=== PATIENT | female | born 1945 | race Caucasian/White ===

== ENCOUNTER 2019-04-12 09:03 | Outpatient (REF) | payer MEDICARE, OTHER, SELFPAY ==
[2019-04-12 19:13] LABS: Anion Gap 10.8 mmol/L (3-11); BUN 37 mg/dL (7-18); CO2 29.2 mmol/L (21.0-32.0); CREATININE 1.07 mg/dL (0.55-1.02); Calcium 9.2 mg/dL (8.5-10.1); Chloride 99 mmol/L (98-107); Estimated GFR 50.55 (mL/min/1.73m2); Glucose 101 mg/dL (74-106); Potassium 3.1 mmol/L (3.5-5.1); Sodium 139 mmol/L (136-145)
== END 2019-04-12 09:23 ==
LOC: NCHCN 09:03
PROVIDERS: PCP Physician Assistant; Visit Provider Physician Assistant
DX: E87.6 Hypokalemia (principal); R60.0 Localized edema
CPT/HCPCS: 80048

== ENCOUNTER 2019-04-30 09:19 | Outpatient (REF) | payer MEDICARE, OTHER, SELFPAY ==
[2019-04-30 19:42] LABS: Anion Gap 8.1 mmol/L (3-11); BUN 26 mg/dL (7-18); CO2 30.9 mmol/L (21.0-32.0); CREATININE 1.05 mg/dL (0.55-1.02); Calcium 8.9 mg/dL (8.5-10.1); Chloride 103 mmol/L (98-107); Estimated GFR 51.52 (mL/min/1.73m2); Glucose 92 mg/dL (74-106); Potassium 3.5 mmol/L (3.5-5.1); Sodium 142 mmol/L (136-145)
== END 2019-04-30 09:39 ==
LOC: NCHCN 09:19
PROVIDERS: PCP Physician Assistant; Visit Provider Physician Assistant
DX: E87.6 Hypokalemia (principal); R60.0 Localized edema
CPT/HCPCS: 80048

== ENCOUNTER 2019-08-30 17:33 | Outpatient (REF) | payer MEDICARE, OTHER, SELFPAY ==
[2019-08-30 19:11] LABS: FREE T4 1.23 ng/dL (0.76-1.46); TSH 1.17 uIU/mL (0.36-3.74)
== END 2019-08-30 17:53 ==
LOC: NCHCN 17:33
PROVIDERS: PCP Physician Assistant; Visit Provider Physician Assistant
DX: E03.9 Hypothyroidism, unspecified (principal)
CPT/HCPCS: 84439; 84443

== ENCOUNTER 2020-02-19 11:40 | Outpatient (REF) | payer MEDICARE, SELFPAY ==
[2020-02-19 20:50] LABS: HCT 37.8 % (36.0-46.0); HGB 12.3 g/dL (11.2-15.7); MCH 29.9 pg (27.0-33.0); MCHC 32.5 % (32.0-36.0); MCV 91.7 fL (80-95); MPV 9.5 fL (8.0-11.0); Platelet Count 414 10^3/uL (130-400); RBC 4.12 10^6/uL (3.93-5.22); RDW 12.6 % (11.7-14.6); RDW-SD 42.1 fL; WBC 7.07 10^3/uL (4.4-10.8)
[2020-02-19 21:11] LABS: Magnesium 2.1 mg/dL (1.8-2.4); TSH 1.15 uIU/mL (0.36-3.74)
[2020-02-19 21:44] LABS: FREE T4 1.05 ng/dL (0.76-1.46)
[2020-02-20 17:24] LABS: T3, Total 124 ng/dL (97-169)
== END 2020-02-19 12:00 ==
LOC: NCHCN 11:40
PROVIDERS: PCP Physician Assistant; Visit Provider Physician Assistant
DX: D72.829 Elevated white blood cell count, unspecified (principal); E03.9 Hypothyroidism, unspecified; R60.0 Localized edema
CPT/HCPCS: 85027; 83735; 84439; 84443; 84480

== ENCOUNTER 2020-05-15 18:44 | Outpatient (REF) | payer MEDICARE, SELFPAY ==
[2020-05-15 18:18] LABS: Anion Gap 11.6 mmol/L (3-11); BUN 36 mg/dL (7-18); CO2 30.4 mmol/L (21.0-32.0); CREATININE 1.1 mg/dL (0.55-1.02); Calcium 9.8 mg/dL (8.5-10.1); Chloride 99 mmol/L (98-107); Estimated GFR 48.69 (mL/min/1.73m2); Glucose 106 mg/dL (74-106); Potassium 3.1 mmol/L (3.5-5.1); Sodium 141 mmol/L (136-145)
[2020-05-15 18:24] LABS: Hemoglobin A1C 5.9 % (<5.7)
== END 2020-05-15 18:45 | disposition home or self-care (01) ==
LOC: NCHCN 18:44
PROVIDERS: PCP Physician Assistant; Visit Provider Physician Assistant
DX: E11.9 Type 2 diabetes mellitus without complications (principal)
CPT/HCPCS: 80048; 83036

== ENCOUNTER 2020-06-16 15:10 | Outpatient (REF) | payer MEDICARE, SELFPAY ==
[2020-06-16 15:32] LABS: Anion Gap 10.6 mmol/L (3-11); CO2 32.4 mmol/L (21.0-32.0); Chloride 95 mmol/L (98-107); Potassium 3.2 mmol/L (3.5-5.1); Sodium 138 mmol/L (136-145)
== END 2020-06-16 15:11 | disposition home or self-care (01) ==
LOC: NCHCN 15:10
PROVIDERS: PCP Physician Assistant; Visit Provider Family Medicine
DX: E87.6 Hypokalemia (principal)
CPT/HCPCS: 80051

== ENCOUNTER 2020-06-23 09:43 | Day surgery (SDC) | payer MEDICARE, OTHER, SELFPAY ==
[2020-06-23 09:48] VITALS: BP 111/60; PULSE 58; RESP 17; TEMP 36.8; O2SAT 98
[2020-06-23] MEDS: Tropicam./Phenyleph. (1/2.5%) 5 ML BTL OD ×3 (10:06→10:23)
[2020-06-23] MEDS: Tetracaine 0.5% 4 ML BTL OD (11:05)
[2020-06-23] MEDS: Lidocaine 2% Jelly 6 ML SYR (11:06)
[2020-06-23] MEDS: Povidone-Iodine Ophth 30 ML BTL (11:06)
[2020-06-23] MEDS: Lidocaine 1% Pres-Free 5 ML VIAL (11:07)
[2020-06-23] MEDS: Duovisc Viscoelastic System EACH 1 EACH (11:08)
[2020-06-23] MEDS: Balanced Salt Soln.-PLUS 500 ML BAG (11:08)
--- NOTE | 2020-06-23 11:33 | W.PM.DSUDISC ---
Discharge Plan Disposition Patient Disposition: HOME Condition: Good Discharge Details Attending Provider: Todd Kelly Primary Care Provider: Arlene Fajardo Home Meds and New Rx's Prescriptions: No Action atorvastatin 40 mg Tablet 40 mg PO DAILY RF: 0 magnesium 500 mg Tablet 500 mg PO DAILY RF: 0 levothyroxine [Synthroid] 88 mcg tablet 88 mcg PO DAILY RF: 0 cephalexin 500 mg Capsule 2,000 mg PO DAILY PRN (Reason: dental) RF: 0 Flovent HFA 44 mcg/actuation Hfa Aerosol Inhaler 1 - 2 puff INHALATION BID RF: 0 furosemide 20 mg Tablet 20 mg PO DAILY PRNRF: 0 triamterene-hydrochlorothiazid 75-50 mg tablet 2 tab PO DAILY RF: 0 albuterol sulfate 90 mcg/actuation HFA aerosol inhaler 1 - 2 puff INHALATION DIRECTED PRNRF: 0 atenolol 50 mg tablet 50 mg PO DAILY RF: 0 Xarelto 20 mg Tablet 20 mg PO DAILY RF: 0 potassium chloride 20 mEq tablet extended release 20 meq PO DAILY RF: 0 liothyronine [Cytomel] 5 mcg tablet 5 mcg PO DAILY RF: 0 Discharge Instructions Stand Alone Forms: Post-op Topical Cataract, Maryan Gates (DSU) Discharge Orders Discharge Orders: Discharge Order (Routine); Ordered 06/23/20 Ordered By: Todd Kelly DS: Diagnosis Discharge Diagnosis (1) Cortical cataract of right eye: Status: Resolved (2) Nuclear sclerotic cataract of right eye: Status: Resolved
--- NOTE | 2020-06-23 11:34 | W.PM.OP ---
Date of service: 06/23/20 Time of Service: 11:35 Operative Note Operative Note DATE OF PROCEDURE: 06/23/20 PRE-OP DIAGNOSIS: Nuclear/cortical cataract, right eye POST-OP DIAGNOSIS: same PROCEDURE: Cataract extraction using phacoemulsification with intraocular lens implant, right eye SURGEON: Todd Kelly ANESTHESIA TYPE: Local By Surgeon and MAC Refer to Anesthesia Record ESTIMATED BLOOD LOSS: 0 PATHOLOGY: none sent COMPLICATIONS: None Patient was transported to: same day Patient's condition: stable Implants: Guido and Guido Vision / [employer] Tecnis ZCB00 intraocular lens Indications: Progressive decreased vision due to cataract, right eye Procedure Description: CATARACT SURGERY OPERATIVE REPORT PREOPERATIVE DIAGNOSIS: Nuclear/cortical cataract, right eye POSTOPERATIVE DIAGNOSIS: Same OPERATION: Cataract extraction using phacoemulsification with posterior chamber intraocular lens implant, right eye. IOL: IOL Director Executive [employer]/Model: [employer] Vision / TAYE Tecnis ZCB00 IOL Power: + 20.5 diopters IOL Serial Number: [id number] Optic Diameter: 6.0mm Haptic/Overall Diameter: 13.0mm PHACO INFO: Travis Secpanelurion Vision System with OZil and Active Fluidics Cumulative Dispersed Energy (CDE): 11.90 seconds SURGEON: Todd Kelly MD, YOLANDA ANESTHESIA: Monitored Anesthesia Care (MAC), with local sub-tenon's anesthetic infiltration COMPLICATIONS: None SPECIMENS: None INDICATIONS FOR PROCEDURE: The patient is a 75-year-old lady with history of diminished visual acuity in her right eye secondary to the development of nuclear and cortical cataract. The option of cataract surgery was offered to the patient and she wished to proceed. PROCEDURE: The correct surgical eye was identified and marked as the right eye and the pupil was dilated in the preoperative area using mydriatics and cycloplegics. The dilated pupil size was 7.0 mm. The patient elected to proceed without oral sedation.. The patient was brought to the operating room where cardiopulmonary monitoring was instituted and surgical time-out was performed, confirming the correct operative eye and IOL power. Topical anesthesia was administered and ophthalmic povidone-iodine 5% was instilled into the conjunctival fornices. Lidocaine gel was applied to the cornea and the angela-ocular area was prepped with Betadine 10% solution and draped in the usual sterile fashion for intraocular surgery, including an aperture drape. A Tegaderm transparent film dressing was cut in half and used to cover the lashes and lid margins. Care was taken to sequester the lashes and lid margins under the Tegaderm dressing. A lid speculum was placed between the lids of the operative eye and the Jude-Pablo operating microscope was maneuvered into position. [place] scissors were then used to make a conjunctival buttonhole approximately 6mm posterior to the limbus in the inferonasal quadrant. Blunt dissection was carried out to expose bare sclera, and a blunt-tipped sub-tenon?s anesthesia cannula was introduced and passed posteriorly along the globe where non-preserved plain lidocaine was injected into posterior sub-Tenon?s space. A sideport knife was used to make a paracentesis port inferiortemporally. Intraocular phenylephrine/lidocaine was injected into the anterior chamber. The anterior chamber was then filled with viscoelastic. A 2.4mm keratome knife was used to create a half-thickness groove at the limbus and then to construct a three-plane near-clear corneal tunnel extending 2.0mm into clear cornea in the superiortemporal position. . A flap was raised on the anterior capsule and capsulorhexis forceps were used to complete a continuous curvilinear capsulorhexis of 5.5 mm. Balanced salt solution was then used to perform cortical cleaving hydrodissection and nuclear hydrodelineation until the lens could be freely rotated within the capsular bag. The lens nucleus was then disassembled and removed within the capsular bag and iris plane using phacoemulsification. Residual cortical material was removed using the I/A handpiece. The posterior capsule was carefully polished to remove as much residual lens epithelial cells as safely possible. The capsular bag was then inflated and the anterior chamber deepened with viscoelastic. The lens implant described above was inserted into the capsular bag using the TAYE [place] Injector. A Kuglen hook was used to dial the IOL into position. Residual viscoelastic was then removed first from posterior to the IOL, then from the anterior chamber using the I/A handpiece. The lens implant was noted to center nicely within the capsular bag. The incisions were stromally hydrated, and the anterior chamber was reformed using BSS. Then 0.5cc of moxifloxacin 1.0mg/ml were injected into the capsular bag and anterior chamber. The incisions were checked with a Weck spear and found to be secure. Several drops of ophthalmic povidone-iodine 5% were then applied to the eye followed by two drops of Imprimis combination prednisolone/moxifloxacin/nepafenac solution. The drapes were removed and a clear plastic protective eye shield was placed over the eye. The patient was then returned to [facility] in stable condition.
== END 2020-06-23 12:00 | disposition home or self-care (01) ==
PROVIDERS: PCP Physician Assistant; Visit Provider Ophthalmology
PROC: (CPT 66984; principal; 2020-06-23 12:30)
DX: H25.11 Age-related nuclear cataract, right eye (principal); H25.011 Cortical age-related cataract, right eye
CPT/HCPCS: 66984; V2632

== ENCOUNTER 2020-07-07 07:19 | Day surgery (SDC) | payer MEDICARE, OTHER, SELFPAY ==
[2020-07-07 07:30] VITALS: BP 138/70; PULSE 51; RESP 18; TEMP 36.1; O2SAT 99
[2020-07-07] MEDS: Tropicam./Phenyleph. (1/2.5%) 5 ML BTL OS ×3 (07:50→07:59)
[2020-07-07] MEDS: Tetracaine 0.5% 4 ML BTL OS (08:35)
[2020-07-07] MEDS: Povidone-Iodine Ophth 30 ML BTL ×2 (08:38→09:02)
[2020-07-07] MEDS: Lidocaine 2% Jelly 6 ML SYR (08:38)
[2020-07-07] MEDS: Balanced Salt Soln.-PLUS 500 ML BAG (08:43)
[2020-07-07] MEDS: Lidocaine 1% Pres-Free 5 ML VIAL (08:44)
[2020-07-07] MEDS: Duovisc Viscoelastic System EACH 1 EACH (08:45)
--- NOTE | 2020-07-07 09:10 | W.PM.DSUDISC ---
Discharge Plan Disposition Patient Disposition: HOME Condition: Good Discharge Details Attending Provider: Todd Kelly Primary Care Provider: Arlene Fajardo Home Meds and New Rx's Prescriptions: No Action atorvastatin 40 mg Tablet 40 mg PO DAILY RF: 0 magnesium 500 mg Tablet 500 mg PO DAILY RF: 0 levothyroxine [Synthroid] 88 mcg tablet 88 mcg PO DAILY RF: 0 cephalexin 500 mg Capsule 2,000 mg PO DAILY PRN (Reason: dental) RF: 0 Flovent HFA 44 mcg/actuation Hfa Aerosol Inhaler 1 - 2 puff INHALATION BID RF: 0 furosemide 20 mg Tablet 20 mg PO DAILY PRNRF: 0 triamterene-hydrochlorothiazid 75-50 mg tablet 2 tab PO DAILY RF: 0 albuterol sulfate 90 mcg/actuation HFA aerosol inhaler 1 - 2 puff INHALATION DIRECTED PRNRF: 0 atenolol 50 mg tablet 50 mg PO DAILY RF: 0 Xarelto 20 mg Tablet 20 mg PO DAILY RF: 0 potassium chloride 20 mEq tablet extended release 20 meq PO DAILY RF: 0 liothyronine [Cytomel] 5 mcg tablet 5 mcg PO DAILY RF: 0 Discharge Instructions Stand Alone Forms: Post-op Topical Cataract, Maryan Gates ([facility]U) Discharge Orders Discharge Orders: Discharge Order (Routine); Ordered 07/07/20 Ordered By: Todd Kelly DS: Diagnosis Discharge Diagnosis (1) Cortical cataract of left eye: Status: Resolved (2) Nuclear sclerotic cataract of left eye: Status: Resolved
--- NOTE | 2020-07-07 09:12 | W.PM.OP ---
Date of service: 07/07/20 Time of Service: 09:12 Operative Note Operative Note DATE OF PROCEDURE: 07/07/20 PRE-OP DIAGNOSIS: Nuclear/cortical cataract, left eye POST-OP DIAGNOSIS: same PROCEDURE: Cataract extraction using phacoemulsification with intraocular lens implant, left eye SURGEON: Todd Kelly ANESTHESIA TYPE: Local By Surgeon and MAC Refer to Anesthesia Record PATHOLOGY: none sent COMPLICATIONS: None Patient was transported to: same day Patient's condition: stable Implants: Guido and Guido Vision / [employer] Tecnis ZCB00 Indications: Progressive decreased vision due to cataract, left eye Procedure Description: CATARACT SURGERY OPERATIVE REPORT PREOPERATIVE DIAGNOSIS: Nuclear/cortical cataract, left eye POSTOPERATIVE DIAGNOSIS: Same OPERATION: Cataract extraction using phacoemulsification with posterior chamber intraocular lens implant, left eye. IOL: IOL Tetryl Screen Operator/Model: J[employer]J Vision / TAYE Tecnis ZCB00 IOL Power: + 21.5 diopters IOL Serial Number: [id number] Optic Diameter: 6.0mm Haptic/Overall Diameter: 13.0mm PHACO INFO: Travis Flexuspineurion Vision System with OZil and Active Fluidics Cumulative Dispersed Energy (CDE): 6.23 seconds SURGEON: Todd Kelly MD, YOLANDA ANESTHESIA: Monitored Anesthesia Care (MAC), with local sub-tenon's anesthetic infiltration COMPLICATIONS: None SPECIMENS: None INDICATIONS FOR PROCEDURE: The patient is a 75-year-old lady with history of diminished visual acuity in both eyes secondary to the development of bilateral nuclear and cortical cataract. She has already undergone cataract surgery in her right eye and is doing well postoperatively. She now presents for cataract surgery in the left eye. PROCEDURE: The correct surgical eye was identified and marked as the left eye and the pupil was dilated in the preoperative area using mydriatics and cycloplegics. The dilated pupil size was 7.5 mm. She elected to proceed without sedation. The patient was brought to the operating room where cardiopulmonary monitoring was instituted and surgical time-out was performed, confirming the correct operative eye and IOL power. Topical anesthesia was administered and ophthalmic povidone-iodine 5% was instilled into the conjunctival fornices. Lidocaine gel was applied to the cornea and the angela-ocular area was prepped with Betadine 10% solution and draped in the usual sterile fashion for intraocular surgery, including an aperture drape. A Tegaderm transparent film dressing was cut in half and used to cover the lashes and lid margins. Care was taken to sequester the lashes and lid margins under the Tegaderm dressing. A lid speculum was placed between the lids of the operative eye and the Jude-Pablo operating microscope was maneuvered into position. [place] scissors were then used to make a conjunctival buttonhole approximately 6mm posterior to the limbus in the inferonasal quadrant. Blunt dissection was carried out to expose bare sclera, and a blunt-tipped sub-tenon?s anesthesia cannula was introduced and passed posteriorly along the globe where non-preserved plain lidocaine was injected into posterior sub-Tenon?s space. A sideport knife was used to make a paracentesis port superior/superiortemporally. Intraocular phenylephrine/lidocaine was injected into the anterior chamber. The anterior chamber was then filled with viscoelastic. A 2.4mm keratome knife was used to create a half-thickness groove at the limbus and then to construct a three-plane near-clear corneal tunnel extending 2.0mm into clear cornea in the temporal position. . A flap was raised on the anterior capsule and capsulorhexis forceps were used to complete a continuous curvilinear capsulorhexis of 5.5 mm. Balanced salt solution was then used to perform cortical cleaving hydrodissection and nuclear hydrodelineation until the lens could be freely rotated within the capsular bag. The lens nucleus was then disassembled and removed within the capsular bag and iris plane using phacoemulsification. Residual cortical material was removed using the 45-degree angled silicone I/A tip with 0.3mm port. The posterior capsule was carefully polished to remove as much residual lens epithelial cells as safely possible. The capsular bag was then inflated and the anterior chamber deepened with viscoelastic. The lens implant described above was inserted into the capsular bag using the TAYE [place] Injector. A Kuglen hook was used to dial the IOL into position. Residual viscoelastic was then removed first from posterior to the IOL, then from the anterior chamber using the I/A handpiece. The lens implant was noted to center nicely within the capsular bag. The incisions were stromally hydrated, and the anterior chamber was reformed using BSS. Then 0.5cc of moxifloxacin 1.0mg/ml were injected into the capsular bag and anterior chamber. The incisions were checked with a Weck spear and found to be secure. Several drops of ophthalmic povidone-iodine 5% were then applied to the eye followed by two drops of Imprimis combination prednisolone/moxifloxacin/nepafenac solution. The drapes were removed and a clear plastic protective eye shield was placed over the eye. The patient was then returned to Same Day Surgery in stable condition.
[2020-07-07] MEDS: Acetaminophen 500 MG TAB 1000 MG PO (09:17)
== END 2020-07-07 09:32 | disposition home or self-care (01) ==
PROVIDERS: PCP Physician Assistant; Visit Provider Ophthalmology
PROC: (CPT 66984; principal; 2020-07-07 09:30)
DX: H25.12 Age-related nuclear cataract, left eye (principal)
CPT/HCPCS: 66984; V2632

== ENCOUNTER 2020-08-05 14:45 | Outpatient (REF) | payer MEDICARE, SELFPAY ==
[2020-08-05 20:19] LABS: FREE T4 1.02 ng/dL (0.76-1.46); Potassium 3.4 mmol/L (3.5-5.1); TSH 5.49 uIU/mL (0.36-3.74)
[2020-08-06 16:45] LABS: T3, Total 160 ng/dL (97-169)
== END 2020-08-05 14:46 | disposition home or self-care (01) ==
LOC: NCHCN 14:45
PROVIDERS: PCP Physician Assistant; Visit Provider Physician Assistant
DX: E03.9 Hypothyroidism, unspecified (principal); E87.6 Hypokalemia
CPT/HCPCS: 84132; 84439; 84443; 84480

== ENCOUNTER 2020-11-04 14:24 | Outpatient (REF) | payer MEDICARE, OTHER, SELFPAY ==
[2020-11-04 19:10] LABS: Anion Gap 9.5 mmol/L (3-11); BUN 32 mg/dL (7-18); CO2 29.5 mmol/L (21.0-32.0); CREATININE 1.1 mg/dL (0.55-1.02); Calcium 9.5 mg/dL (8.5-10.1); Chloride 100 mmol/L (98-107); Estimated GFR 48.69 (mL/min/1.73m2); FREE T4 1.23 ng/dL (0.76-1.46); Glucose 108 mg/dL (74-106); Potassium 3.6 mmol/L (3.5-5.1); Sodium 139 mmol/L (136-145)
[2020-11-05 17:35] LABS: T3, Total 130 ng/dL (97-169)
== END 2020-11-04 14:25 | disposition home or self-care (01) ==
LOC: NCHCN 14:24
PROVIDERS: PCP Physician Assistant; Visit Provider Physician Assistant
DX: E06.3 Autoimmune thyroiditis (principal); E87.6 Hypokalemia
CPT/HCPCS: 80048; 84439; 84443; 84480

== ENCOUNTER 2021-04-02 17:58 | Outpatient (REF) | payer MEDICARE, OTHER, SELFPAY ==
[2021-04-02 19:25] LABS: Anion Gap 11.5 mmol/L (3-11); BUN 33 mg/dL (7-18); CO2 28.5 mmol/L (21.0-32.0); CREATININE 1.1 mg/dL (0.55-1.02); Calcium 9.3 mg/dL (8.5-10.1); Chloride 98 mmol/L (98-107); Estimated GFR 48.69 (mL/min/1.73m2); Glucose 113 mg/dL (74-106); Potassium 3.3 mmol/L (3.5-5.1); Sodium 138 mmol/L (136-145)
== END 2021-04-02 17:59 | disposition home or self-care (01) ==
LOC: NCHCN 17:58
PROVIDERS: PCP Physician Assistant; Visit Provider Physician Assistant
DX: E87.6 Hypokalemia (principal)
CPT/HCPCS: 80048

== ENCOUNTER 2021-05-07 16:17 | Outpatient (REF) | payer MEDICARE, OTHER, SELFPAY ==
[2021-05-07 20:38] LABS: FREE T4 1.26 ng/dL (0.76-1.46); Potassium 3.1 mmol/L (3.5-5.1); TSH 0.64 uIU/mL (0.36-3.74)
[2021-05-08 22:51] LABS: T3, Total 125 ng/dL (97-169)
== END 2021-05-07 16:18 | disposition home or self-care (01) ==
LOC: NCHCN 16:17
PROVIDERS: PCP Physician Assistant; Visit Provider Physician Assistant
DX: E06.3 Autoimmune thyroiditis (principal); E87.6 Hypokalemia
CPT/HCPCS: 84132; 84439; 84443; 84480

== ENCOUNTER 2021-06-04 17:39 | Outpatient (REF) | payer MEDICARE, OTHER, SELFPAY ==
[2021-06-04 20:00] LABS: Anion Gap 8.8 mmol/L (3-11); BUN 24 mg/dL (7-18); CO2 29.2 mmol/L (21.0-32.0); CREATININE 0.9 mg/dL (0.55-1.02); Calcium 9.2 mg/dL (8.5-10.1); Chloride 103 mmol/L (98-107); Glucose 99 mg/dL (74-106); Potassium 3.5 mmol/L (3.5-5.1); Sodium 141 mmol/L (136-145)
== END 2021-06-04 17:40 | disposition home or self-care (01) ==
LOC: NCHCN 17:39
PROVIDERS: PCP Physician Assistant; Visit Provider Physician Assistant
DX: E87.6 Hypokalemia (principal)
CPT/HCPCS: 80048

== ENCOUNTER 2022-01-21 16:15 | Outpatient (REF) | payer MEDICARE, OTHER, SELFPAY ==
[2022-01-21 19:13] LABS: HCT 36.8 % (36.0-46.0); HGB 12.1 g/dL (11.2-15.7); MCHC 32.9 % (32.0-36.0); MCV 91 fL (80-95); MPV 9.4 fL (8.0-11.0); Platelet Count 388 10^3/uL (130-400); RBC 4.03 10^6/uL (3.93-5.22); RDW 13.2 % (11.7-14.6); RDW-SD 44.7 fL; WBC 10.78 10^3/uL (4.4-10.8)
[2022-01-21 19:20] LABS: Uric Acid 8.5 mg/dL (2.6-6.0)
[2022-01-25 10:19] LABS: FREE T4 1.47 ng/dL (0.76-1.46)
== END 2022-01-21 16:16 | disposition home or self-care (01) ==
LOC: NCHCN 16:15
PROVIDERS: PCP Physician Assistant; Visit Provider Nurse Practitioner Family
DX: E06.3 Autoimmune thyroiditis (principal); M79.671 Pain in right foot
CPT/HCPCS: 85027; 84439; 84443; 84550

== ENCOUNTER 2022-10-21 20:04 | Outpatient (REF) | payer MEDICARE, OTHER, SELFPAY ==
[2022-10-21 18:38] LABS: Abs Immature Grans 0.03 10^3/uL (0.0-0.06); Absolute Basophil Count 0.07 10^3/uL (0.0-0.2); Absolute Eosinophil Count 0.35 10^3/uL (0.0-0.7); Absolute Lymphocyte Count 1.82 10^3/uL (1.2-3.4); Absolute Monocyte Count 0.74 10^3/uL (0.1-0.8); Absolute Neutrophil Count 6.09 10^3/uL (1.2-6.7); Basophils % 0.8; Eosinophils % 3.8; HCT 40.2 % (36.0-46.0); HGB 13.6 g/dL (11.2-15.7); Immature Grans % 0.3; MCH 29.9 pg (27.0-33.0); MCHC 33.8 % (32.0-36.0); MCV 88 fL (80-95); Monocytes % 8.1; Platelet Count 317 10^3/uL (130-400); RBC 4.55 10^6/uL (3.93-5.22); RDW 12.7 % (11.7-14.6); RDW-SD 41.1 fL
[2022-10-21 18:53] LABS: ALT 35 U/L (14-59); AST 23 U/L (15-37); Albumin 4.4 g/dL (3.4-5.0); Alkaline Phosphatase 94 U/L (46-116); Anion Gap 8.9 mmol/L (3-11); BUN 47 mg/dL (7-18); Bilirubin, Total 0.5 mg/dL (0.2-1.0); CO2 30.1 mmol/L (21.0-32.0); CREATININE 1.2 mg/dL (0.55-1.02); Calcium 9.3 mg/dL (8.5-10.1); Chloride 99 mmol/L (98-107); Estimated GFR 47.21 (mL/min/1.73m2); Glucose 108 mg/dL (74-106); Potassium 3.1 mmol/L (3.5-5.1); Sodium 138 mmol/L (136-145); TSH (W/Ref FT4) 0.37 uIU/mL (0.36-3.74); Total Protein 7.9 g/dL (6.4-8.2); Uric Acid 9.1 mg/dL (2.6-6.0)
[2022-10-22 19:41] LABS: T3, Total 139 ng/dL (97-169)
== END 2022-10-21 20:05 | disposition home or self-care (01) ==
LOC: NCHCN 20:04
PROVIDERS: PCP Physician Assistant; Visit Provider Physician Assistant
DX: E03.9 Hypothyroidism, unspecified (principal); E87.6 Hypokalemia; N18.32 Chronic kidney disease, stage 3b; R73.03 Prediabetes; R55 Syncope and collapse; M10.9 Gout, unspecified
CPT/HCPCS: 80053; 84443; 84480; 84550; 85025